=== PATIENT | male | born 1960 | race Caucasian/White ===

== ENCOUNTER 2016-06-26 15:55 | Emergency (ER) | payer MEDICARE, OTHER ==
[~2016-06-26] VITALS: Ht 162.6 cm; Wt 67.3 kg
[~2016-06-26 15:55] MED LIST: ASP81TEC PO; HYDR-3091 PO; HYDR25TA4 PO; LISI10TA9 PO; METF1000 PO
[2016-06-26 16:16] VITALS: BP 111/64; PULSE 93; RESP 18; O2SAT 95
[2016-06-26 16:33] LABS: BASOPHILS % (AUTO) 0.2 % (0-3); EOSINOPHILS % (AUTO) 1.4 % (0-5); MONOCYTES % (AUTO) 5.7 % (4-12); Mean Corpuscular Hemoglobin 27.3 pg (27.0-35.0); Mean Corpuscular Volume 79.4 fL (81-100); NEUTROPHILS % (AUTO) 66.8 % (40-74); Platelet Count 208 bil/L (150-400)
--- NOTE | 2016-06-26 17:00 | DRSVH ---
PROCEDURE: X-RAY CHEST ONE VIEW, PORTABLE ([id number]) INDICATIONS: CHEST PAIN TECHNIQUE: One view of the chest was acquired. COMPARISON: None. FINDINGS: Surgical changes and devices: Spinal fixation hardware in the cervical spine. There is a right should er arthroplasty Lungs and pleura: No pleural effusions or pneumothorax. Lungs are clear. Mediastinum: Mediastinal contours appear normal. Heart size is normal. Bones and chest wall: No suspicious bony lesions. Overlying soft tissues appear unremarkable. IMPRESSION: No acute disease Dictated by: Ebenezer Foreman M.D. on 06/26/2016 at 16:58 Approved by: Ebenezer Foreman M.D. on 06/26/2016 at 16:59
[2016-06-26 17:16] LABS: TROPONIN T < 0.010 ug/L (0.0-0.011)
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
[2016-06-26 18:00] VITALS: BP 129/91; PULSE 86; O2SAT 98
== END 2016-06-26 18:39 | disposition home or self-care (01) ==
LOC: EDBD 15:55 → EDUNIT# 15:55 → SED 15:55
DX: R07.89 Other chest pain (principal); R06.02 Shortness of breath; R11.0 Nausea; R53.83 Other fatigue; E11.9 Type 2 diabetes mellitus without complications; Z87.891 Personal history of nicotine dependence